=== PATIENT | female | born 1965 ===

== ENCOUNTER 2016-12-26 05:46 | Day surgery (SDC) | payer BC, SELFPAY ==
--- NOTE | 2016-12-21 16:41 | Pre-Procedure Note/Attestation ---
Pre-Procedure Note/Attestation Complete Prior to Procedure Planned Procedure: right Procedure Narrative: 1. CATARACT EXTRACTION WITH PHACO AND PC IOL IMPLANTATION, RIGHT EYE. 2.LIMBAL RELAXING INCISION,RIGHT EYE. Indications for Procedure Pre-Operative Diagnosis: 1. CATARACT ,RIGHT EYE. 2. ASTIGMATISM, RIGHT EYE. Attestation I attest that I discussed the nature of the procedure; its benefits; risks and complications; and alternatives (and the risks and benefits of such alternatives ), prior to the procedure, with the patient (or the patient's legal ambulatory services representative). I attest that, if there was a reasonable possibility of needing a blood transfusion, the patient (or the patient's legal ambulatory services representative) was given the [place] [employer] standardized written summary, pursuant to the [place] Toot[place] Blood Safety Act ([place] Health and Safety Code # 1645, as amended). I attest that I re-evaluated the patient just prior to the surgery and that there has been no change in the patient's H&P, except as documented below: SAM DUCKWORTH Dec 21, 2016 16:41
[~2016-12-26] VITALS: Ht 167.6 cm; Wt 96.2 kg
[2016-12-26] VITALS (8 sets, daily range): BP systolic 117–146; BP diastolic 72–86
[~2016-12-26 05:46] MED LIST: Akten 3.5% 1ml Btl ONE; Diclofenac Sod 0.1% Op Soln ONE; Gatifloxacin Opth Solution 0.5% ONE; Phenylephrine 10% Opth Soln 5ml ONE; TIMOPTIC 0.5%1 DRO1 BOTH EYES; Tropicamide 1% Opth Soln ONE
[2016-12-26] MEDS ORDERED: acetaZOLAMIDE 125mg tab ORAL ONE (06:00)
[2016-12-26] MEDS: Gatifloxacin Opth Solution 0.5% RIGHT EYE SCH ×3 (06:10→06:32)
[2016-12-26] MEDS: Tropicamide 1% Opth Soln RIGHT EYE SCH ×3 (06:25→06:39)
[2016-12-26] MEDS: Phenylephrine 10% Opth Soln 5ml RIGHT EYE SCH ×3 (06:25→06:39)
[2016-12-26] MEDS: Akten 3.5% 1ml Btl RIGHT EYE SCH ×3 (06:26→06:39)
[2016-12-26] MEDS: Diclofenac Sod 0.1% Op Soln RIGHT EYE SCH ×3 (06:27→06:39)
[2016-12-26] MEDS ORDERED: Lidocaine 1% MPF 10mg/ml 5ml ONE (06:57)
[2016-12-26] MEDS ORDERED: Tetracaine 0.5% Opth Soln ONE (06:57)
[2016-12-26] MEDS ORDERED: Dexamethasone 4mg/ml vial ONE (06:57)
[2016-12-26] MEDS ORDERED: BSS 500ml btl ONE (06:57)
[2016-12-26] MEDS ORDERED: EPINEPHrine 1mg/1ml Amp ONE (06:58)
[2016-12-26] MEDS ORDERED: Povidone-Iodine 5% opth solution ONE (06:58)
[2016-12-26] MEDS ORDERED: Carbachol 0.01% Op Soln 1.5ml vial ONE (06:58)
[2016-12-26] MEDS ORDERED: Midazolam 2mg/2ml Inj ONE (07:00)
[2016-12-26] MEDS ORDERED: Sterile Water Irrig 1000ml IRRIG ONE (07:00)
[2016-12-26] MEDS ORDERED: Propofol 10mg/ml 20ml IV ONE (07:00)
[2016-12-26] MEDS ORDERED: LR 1000ml ONE (07:00)
[2016-12-26] MEDS ORDERED: NS Irrig 1000ml ONE (07:00)
[2016-12-26] MEDS ORDERED: BSS 15ml BTL ONE (07:07)
[2016-12-26] MEDS ORDERED: LR 1000ml 1,000 ML IVLG SCH (07:43)
[2016-12-26] MEDS ORDERED: fentaNYL 100 mcg/2 mL IV PRN (07:45)
--- NOTE | 2016-12-26 07:50 | Anethesia Preoperative Eval ---
Anesthesia Pre-op PMH/ROS General Date of Evaluation: Dec 26, 2016 Time of Evaluation: 07:15 Anesthesiologist: Adrianna ASA Score: ASA 2 Mallampati Score Class I : Soft palate, uvula, fauces, pillars visible Class II: Soft palate, uvula, fauces visible Class III: Soft palate, base of uvula visible Class IV: Only hard plate visible Mallampati Classification: Class II Surgeon: Jonathon Diagnosis: Cataract Surgical Procedure: Extraction of cataract with IOL right eye Family History: no anesthesia problems Allergies: Coded Allergies: No Known Allergies (Unverified , 12/21/16) Medications: see eMAR Past Medical History Cardiovascular: Denies: CAD, HTN, [place], arrhythmia, other, valve dz Pulmonary: Denies: COPD, CHAUNCEY, asthma, other Gastrointestinal/Genitourinary: Denies: CRI, ESRD, GERD, other Neurologic/Psychiatric: Denies: CVA, TIA, dementia, depression/anxiety, other Endocrine: Denies: DM, hypothyroidism, other, steroids HEENT: Denies: [place] (L), [place] (R), cataract (L), cataract (R), glaucoma, other Hematology/Immune: Denies: DVT, anemia, bleeding disorder, other Musculoskeletal/Integumentary: Denies: DDD, DJD, OA, RA, edema, other Other: obesity PMH Narrative: Denies significant PMH PSxH Narrative: Cholecystectomy, breast reduction Anesthesia Pre-op Phys. Exam Physician Exam Last Vital Signs Date Time Temp Pulse Resp B/P Pulse Ox O2 Delivery O2 Flow Rate FiO2 12/26/16 06:35 97.8 77 18 140/77 99 Room Air Constitutional: NAD Neurologic: CN 2-12 intact Cardiovascular: RRR, no M/R/G Respiratory: CTA Gastrointestinal: S/NT/ND Airway Exam Mallampati Score: Class II MO: full ROM: full Teeth: intact Anesthesia Pre-op A/P Labs WNL Studies Pre-op Studies: EKG - NSR Risk Assessment & Plan Assessment: Healthy female for extraction of cataract Plan: MAC Status Change Before Surgery: No Pre-Antibiotics Drug: None ROSALINDA THAPA M.D. Dec 26, 2016 07:50
--- NOTE | 2016-12-26 07:51 | Immediate Post-Op Evaluation ---
Immediate Post-Op Evalulation Immediate Post-Op Evalulation Procedure: Extraction of cataract with IOL right eye Date of Evaluation: Dec 26, 2016 Time of Evaluation: 08:20 IV Fluids: 300 Blood Pressure Systolic: 146 Blood Pressure Diastolic: 86 Pulse Rate: 68 Respiratory Rate: 17 O2 Sat by Pulse Oximetry: 99 Temperature (Fahrenheit): 97.6 Pain Score (1-10): 0 Nausea: No Vomiting: No Complications No complication Patient Status: awake, patent, none Hydration Status: adequate Drug: None ROSLAINDA THAPA M.D. Dec 26, 2016 07:51
[2016-12-26] MEDS ORDERED: LR 1000ml 1,000 ML IV SCH (08:00)
--- NOTE | 2016-12-26 08:18 | Discharge Summary ---
Discharge Summary Discharge Summary Discharge Summary DATE OF ADMISSION:12/26/2016 DATE OF DISCHARGE:12/26/2016 REASON FOR HOSPITALIZATION: Cataract right eye SURGERY PERFORMED: Cataract extraction with phaco and PC IOL implantation, right eye CONDITION IN THE HOSPITAL:The patient tolerated the surgery without complications. DISCHARGE CONDITION: The patient was stable at discharge. DISCHARGE MEDICATIONS: 1. Vigamox eye drops one drop q.i.d, right eye 2. Prednisolone one drop q.i.d, right eye 3. Acular, one drop q4 hours, right eye POSTOPERATIVE ORDERS: The patient has to rest at home. No bending, No lifting, No watching Television tonight. POSTOPERATIVE FOLLOW UP: The patient will be followed in my office tomorrow morning at 7 o'clock. SAM DUCKWORTH Dec 26, 2016 08:18
--- NOTE | 2016-12-26 08:20 | Brief Operative Note ---
Immediate Post Operative Note Operative Note Chief Complaint: Blurry vision, right eye. difficulty driving and reading, right eye Pre-op Diagnosis: 1. CATARACT ,RIGHT EYE. 2. ASTIGMATISM, RIGHT EYE. Procedure: cataract extraction with phaco and PC IOL implantation, right eye Post-op Diagnosis: same as pre-op Surgeon: Sam Holt MD Superintendent Quarry: None Additional Surgeons: None Anesthesiologist: Dr. Rodas Anesthesia: MAC Specimen: none Complications: none Condition: stable Estimated Blood Loss: none Drains: none Implant(s) used?: Yes - Multifocal PC IOL implanted in the right eye without complication SAM HOLT Dec 26, 2016 08:20
--- NOTE | 2016-12-26 08:20 | 48 Hour Post Anesthesia Eval ---
Post Anesthesia Evaluation Procedure: Extraction of cataract with IOL right eye Date of Evaluation: Dec 26, 2016 Time of Evaluation: 08:40 Blood Pressure Systolic: 144 0: 72 Pulse Rate: 65 Respiratory Rate: 18 O2 Sat by Pulse Oximetry: 97 Airway: patent Nausea: No Vomiting: No Pain Intensity: 0 Hydration Status: adequate Cardiopulmonary Status: Stable Mental Status/LOC: patient returned to baseline Follow-up Care/Observations: As per surgery Post-Anesthesia Complications: No anesthetic complication Follow-up care needed: N/A ROSALINDA THAPA M.D. Dec 26, 2016 08:19
[2016-12-26] MEDS ORDERED: Sodium Hyaluronate 10 mg/ml 0.85ml ONE (09:12)
--- NOTE | 2016-12-26 16:45 | Operative Note - Dictated ---
DATE OF OPERATION: 12/26/2016 FACILITY: [facility]. SURGEON: Gilles Holt M.D. STAFFING CONSULTANT: None. ANESTHESIOLOGIST: Pedro Rodas M.D. ANESTHESIA: Monitored anesthesia care (MAC). PREOPERATIVE DIAGNOSIS: Cataract of the right eye. POSTOPERATIVE DIAGNOSIS: Cataract of the right eye. SURGERY PERFORMED: 1. Cataract extraction with phacoemulsification and posterior chamber intraocular lens implantation in the right eye. 2. Limbal relaxing incision (LRI), right eye. INDICATION FOR SURGERY: The patient is a 51-year-old lady with history of diabetes mellitus, high blood pressure, obesity, coronary artery disease, and osteoarthritis. The patient is taking medications including simvastatin, aspirin, losartan, Mobic for back pain. The patient is complaining of blurry vision in the right eye. The patient has had multiple corticosteroid injections in her back and knee. Therefore, she had developed posterior subcapsular cataract in the right. The patient is not allergic to any medication. The patient is not a smoker and is not drinker. On the examination of the right eye, the cornea is clear. Anterior chamber is clean and quiet, but shallow. Pupillary reflex is normal. Iris is normal. There is 3+ cortical cataract and 4+ posterior subcapsular cataract in the right eye. Pupillary reflexes normal. There is no RAPD. Funduscopy shows normal optic disc, normal macula, and periphery retina is flat. To improve her vision in the right eye, the cataract has to be removed and posterior chamber intraocular lens has to be implanted. INFORMED CONSENT: The nature of the surgery, risks, benefits, potential complications, and alternatives were explained in detail. The potential complications including, but not limited to bleeding, infection, posterior capsular rupture, lens subluxation, flat anterior chamber, iris prolapse, uveitis, endophthalmitis, corneal edema, macular edema, retinal detachment, loss of vision, and even loss of the eye were all explained in detail to the patient. The patient voiced understanding and accepted all the complications. The alternatives including accommodating lenses, multifocal lenses, toric lens, and conventional cataract surgery with limbal relaxing incision for astigmatism were all explained in detail to the patient who voiced understanding. The patient elected to have conventional cataract surgery and insertion of a multifocal lens in the right eye. Then, she signed the consent for which is . DESCRIPTION OF THE SURGERY AND FINDINGS: Following that, the patient was taken to the operation room in a stable condition. Akten 3.5%, lidocaine gel was applied to the conjunctiva of the right eye. IV sedation was given by the anesthesiologist, Dr. Rodas. After adequate anesthesia and sedation had been achieved, the right eye was prepped and draped in a sterile fashion for intraocular surgery. Following that, a speculum was placed in the right eye. Before the patient was taken to the operation room, the cornea was marked at 180 and 90 degrees on the limbal strip. In the operating room, using a marking pen and corneal marker, the steep meridian of the cornea was marked. Following that, using a kiara knife blade two parallel incisions were created on the steep meridian of the cornea to treat astigmatism. Following that, using a Super Sharp knife, a clear corneal side port was created with 1% lidocaine without preservative was injected into the anterior chamber. The viscoelastic agent, Healon was injected into the anterior chamber. Following that, using a 2.8 mm keratome, a temporal clear corneal corticectomy was performed. Viscoelastic agent was injected into the anterior chamber again. Following that, vision blue was injected under the viscoelastic agent, an anterior capsulotomy was performed in the fashion of capsulorrhexis after injection of the sclerae and viscoelastic agent. Following that, old viscoelastic was removed from the anterior chamber. Following that, using balanced salt solution, hydrodissection and hydrodelineation was performed and the nucleus was freed. Following that, the viscoelastic agent was injected into the anterior chamber to protect the corneal endothelium. Following that, using the phacoemulsification machine in the fashion of horizontal chop, the nucleus was removed in toto. Following that, using irrigation and aspiration unit, cortical material was removed from the capsular bag and the capsular bag was polished. Following that, capsular bag was filled with viscoelastic agent, Healon. Following that, a +23 diopter with serial number #[id number] was injected into the capsular bag. within the proper position. Following that, the viscoelastic was removed from the anterior posterior part of the lens. Following that, the wounds were hydrated with balanced salt solution. Following that, the wound was checked for leakage, there was no leakage. Vigamox eye drops were applied to the conjunctivae of the right eye. The patient tolerated the surgery without complications. At the end of the surgery, the eye was patched with a clear sterile fenestrated shield. Following that, the patient was transferred to the recovery room. In the recovery room, 125 mg Diamox was given by mouth. Gilles Holt M.D. DR: ANTHONY JOB#: [id number] CC:
== END 2016-12-26 10:30 | disposition home or self-care (01) ==
LOC: SUR 05:46
DX: H25.011 Cortical age-related cataract, right eye (principal); H25.041 Posterior subcapsular polar age-related cataract, right eye; H52.201 Unspecified astigmatism, right eye; H40.9 Unspecified glaucoma; N91.5 Oligomenorrhea, unspecified; I25.10 Atherosclerotic heart disease of native coronary artery without angina pectoris; M19.90 Unspecified osteoarthritis, unspecified site; I10 Essential (primary) hypertension; E66.9 Obesity, unspecified; Z68.36 Body mass index [BMI] 36.0-36.9, adult; R73.03 Prediabetes; Z98.51 Tubal ligation status; Z90.49 Acquired absence of other specified parts of digestive tract
CPT/HCPCS: 94003; 94150; J2250